=== PATIENT | male | born 2000 | race Caucasian/White ===

== ENCOUNTER 2018-12-30 16:11 | Emergency (ER) | payer OTHER ==
[~2018-12-30] VITALS: Ht 180.3 cm; Wt 87.3 kg
[2018-12-30] MEDS ORDERED: IBUP80TA PO (16:18)
[2018-12-30] MEDS ORDERED: ONDANSETRON 4 MG ORAL DISINTEGRATING TAB (Q0162 PER 1MG) PO ONE (17:15)
[2018-12-30 18:10] VITALS: BP 116/69
[2018-12-30] MEDS ORDERED: IBUP-1022 PO (18:11)
--- NOTE | 2018-12-31 07:14 | REP ---
FACIAL BONES: Six views of the facial bones are performed. I see no evidence of acute fracture, dislocation or intrinsic bone disease. Visualized paranasal sinuses appear clear with no air fluid levels. IMPRESSION: No radiographic evidence of facial bone fracture. Electronically Signed by Dread Shea MD 12/31/2018 09:14 A
--- NOTE | 2018-12-31 07:14 | REP ---
CT BRAIN WITHOUT IV CONTRAST: CT brain was performed without IV contrast. Ventricles are normal in size and position. There is no midline shift of mass effect. Shea white differentiation is well maintained. There is no acute intracranial lesion or extra-axial fluid collection. No skull fracture is seen. IMPRESSION: No evidence of acute bleed or fracture. Electronically Signed by Dread Shea MD 12/31/2018 09:14 A
== END 2018-12-30 18:25 | disposition home or self-care (01) ==
LOC: M ED 16:11
DX: S09.90XA Unspecified injury of head, initial encounter (principal); W22.8XXA Striking against or struck by other objects, initial encounter; Y92.138 Other place on military base as the place of occurrence of the external cause; Y99.1 Military activity
CPT/HCPCS: 70150; 70450; 99283; Q0162